=== PATIENT | male | born 1930 | race Caucasian/White ===

== ENCOUNTER → 2017-02-08 | Outpatient (CLI) | payer MEDICARE, OTHER ==
[~2017-02-08] MED LIST: ADVIL200 MG; NORVASC2.5 MG; PRAVACHOL40 MG; VITAMIN B-121000 MCG; VITAMIN D1000 UNIT
--- NOTE | ~2017-02-08 | ENPV ---
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 Calcified arterial conti in left lower extremity. Triphasic and biphasic waveforms in the left lower extremity. Procedure Type of Study: Extremities Arteries:Lower Extremities Arterial Duplex, Arterial Lower Extremity Left. Indications for Study:Reduced/Absent pulses. Patient Status:Routine. Study Location:Vascular Lab. Technical Quality:Adequate visualization. Velocities are measured in cm/s ; Diameters are measured in cm LE Duplex Measurements + ++-----+ +----+---+ + ! !!Right! !Left! ! ! + ++-----+ +----+---+ + !Location !!PSV !Wave Desc. ! !PSV!Wave Desc. ! + ++-----+ +----+---+ + !Femoral !! ! ! !127!Triphasic ! + ++-----+ +----+---+ + !PFA !! ! ! !117!Biphasic ! + ++-----+ +----+---+ + !Prox SFA !! ! ! !123!Biphasic ! + ++-----+ +----+---+ + !Mid SFA !! ! ! !108!Biphasic ! + ++-----+ +----+---+ + !Dist SFA !! ! ! !88 !Biphasic ! + ++-----+ +----+---+ + !Prox Popliteal !! ! ! !38 !Biphasic ! + ++-----+ +----+---+ + !Dist Popliteal !! ! ! !52 !Biphasic ! + ++-----+ +----+---+ + !Dist MANUFACTURING ENGINEERING PROFESSOR !! ! ! !52 !Biphasic ! + ++-----+ +----+---+ + !DP !! ! ! !25 !Biphasic ! + ++-----+ +----+---+ + Signature dtt: REBA HYMAN dtd: 02/08/17 1143 Physician Self Edit
== END | disposition disaster alternative care site (69) ==
LOC: GCAR 11:12
DX: I83.023 Varicose veins of left lower extremity with ulcer of ankle (principal); R09.89 Other specified symptoms and signs involving the circulatory and respiratory systems

== ENCOUNTER → 2017-02-16 | Outpatient (CLI) | payer MEDICARE, OTHER ==
--- NOTE | ~2017-02-16 | ENPV ---
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 Significant venous reflux is noted in the left greater saphenous vein at the mid calf. The left greater saphenous vein was not visualized from the mid to distal thigh. Procedure Type of Study: Veins:Lower Extremities Venous Insufficiency, Venous Duplex Pre Intervention NH, Lower Extremities DVT Study, Lower Extremity Left. Indications for Study:Venous ulcer and Unilateral pain and edema. Additional Indications:Left Lower extremity ulcer,edema, and pain. Patient Status:Routine. Study Location:Vascular Lab. Technical Quality:Adequate visualization. Contrast Medium Amount:9 ml. Velocities are measured in cm/s ; Diameters are measured in cm Left Doppler Measurements and Mapping + + +------+ +-------+ + !Location !Signal !Reflux!Reflux (sec)!AP Diam!Trans Diam! + + +------+ +-------+ + !Sapheno Femoral Junction!Phasic !No ! !0.45 !0.54 ! + + +------+ +-------+ + !GSV High Thigh !Absent !No ! !0.07 !0.09 ! + + +------+ +-------+ + !GSV Mid Thigh !Absent ! ! ! ! ! + + +------+ +-------+ + !GSV Low Thigh !Absent ! ! ! ! ! + + +------+ +-------+ + !GSV Knee !Absent !No ! !0.08 !0.08 ! + + +------+ +-------+ + !GSV High Calf !Diminished!No ! !0.12 !0.14 ! + + +------+ +-------+ + !GSV Mid Calf !Phasic !Yes !1.5 !0.17 !0.15 ! + + +------+ +-------+ + !GSV Low Calf !Diminished!No ! !0.26 !0.4 ! + + +------+ +-------+ + !SSV High Calf !Diminished!No ! !0.2 !0.25 ! + + +------+ +-------+ + !SSV Mid Calf !Diminished!No ! !0.21 !0.17 ! + + +------+ +-------+ + Velocities are measured in cm/s ; Diameters are measured in cm Right Lower Extremities DVT Study Measurements Right 2D and Doppler Measurements + + + + +------+------+ + !Location !Visualized!Compressibility!Thrombosis!Signal!Reflux!Reflux ! ! ! ! ! ! ! !(sec) ! + + + + +------+------+ + !Common !Yes !Yes !None ! ! ! ! !Femoral ! ! ! ! ! ! ! + + + + +------+------+ + Left Lower Extremities DVT Study Measurements Left 2D and Doppler Measurements + + + + +------+------+ + !Location !Visualized!Compressibility!Thrombosis!Signal!Reflux!Reflux ! ! ! ! ! ! ! !(sec) ! + + + + +------+------+ + !GSV Thigh !Yes !Yes !None !Phasic!No ! ! + + + + +------+------+ + !Common !Yes !Yes !None !Phasic!No ! ! !Femoral ! ! ! ! ! ! ! + + + + +------+------+ + !Prox !Yes !Yes !None !Phasic!No ! ! !Femoral ! ! ! ! ! ! ! + + + + +------+------+ + !Mid Femoral!Yes !Yes !None !Phasic!No ! ! + + + + +------+------+ + !Dist !Yes !Yes !None !Phasic!No ! ! !Femoral ! ! ! ! ! ! ! + + + + +------+------+ + !Popliteal !Yes !Yes !None !Phasic!No ! ! + + + + +------+------+ + !Gastroc !Yes !Yes !None ! ! ! ! + + + + +------+------+ + !PTV !Yes !Yes !None ! ! ! ! + + + + +------+------+ + !Peroneal !Yes !Yes !None ! ! ! ! + + + + +------+------+ + Signature dtt: REBA HYMAN dtd: 02/16/17 1001 Physician Self Eddl
== END | disposition disaster alternative care site (69) ==
LOC: GCAR 09:35
DX: I83.023 Varicose veins of left lower extremity with ulcer of ankle (principal); I82.891 Chronic embolism and thrombosis of other specified veins

== ENCOUNTER 2017-04-20 20:15 | Emergency (ER) | payer MEDICARE, OTHER ==
--- NOTE | ~2017-04-20 | ER ---
PATIENT'S NAME: LOYD CISNEROS [facility] AGE: 86 Y [address] ROOM: [place], [place] [address] LOCATION: [facility] ADMIT DATE: 04/20/2017 ER/Outpatient Report DISCHARGE DATE: 04/20/2017 FAMILY PHYSICIAN: Patel Mitchell MD ATTENDING PHYSICIAN: Mary Powell Admission date and time documented on the medical record. I saw the patient at 2030 hours. CHIEF COMPLAINT: Somnolence, tiredness, lethargy. HISTORY OF PRESENT ILLNESS: The patient is an 86-year-old male who took a new medication this afternoon around 1700 hours. He took Seroquel or quetiapine 25 mg. By 1730 hours, he was somnolent, sleepy. He fell asleep while he was eating his dinner tonight, "completely out of it" according to his . His brought him in for evaluation. She thought he might have been hallucinating at times along with his somnolence and sleepiness. He has not had any recent cold, coughs, flus, or any other medical problems. We were able to wake him up. He denies any chest pain, shortness of breath, abdominal pain, nausea, vomiting, diarrhea, or incontinence of stool or urine. No joint or muscle swelling, redness, or pain. No skin eruptions or rash. No lightheadedness, dizziness, syncope, or near syncope. No fall or trauma. No recent cold, coughs, flus, fever, chills, or sweats. No headache, eyes, ears, nose, throat, neck, or spine pain. The patient has no endocrine problems, neuro changes, or psych issues. HOME MEDICATIONS: See attached medication list. ALLERGIES: NONE. SOCIAL HISTORY: Nonsmoker, nondrinker. SIGNIFICANT PAST MEDICAL HISTORY: Hypertension, dyslipidemia, venous stasis ulcers on his lower extremities, atherosclerotic ischemic heart disease, coronary artery disease, degenerative osteoarthritis, venous insufficiency, remote tobacco abuse, gastroesophageal reflux, shingles, carotid occlusive disease, valvular heart disease with aortic stenosis, prostate cancer, colon cancer, iron deficiency anemia, and GI bleed. OPERATIONS: PATIENT'S NAME: LOYD CISNEROS [facility] AGE: 86 Y [address] ROOM: [place], [place] [address] LOCATION: [facility] ADMIT DATE: 04/20/2017 ER/Outpatient Report DISCHARGE DATE: 04/20/2017 FAMILY PHYSICIAN: Patel Mitchell MD ATTENDING PHYSICIAN: Mary Powell Left carotid endarterectomy, prostatectomy, colon resection, coronary artery bypass graft, bilateral cataract extraction, cervical spine surgery, carpal tunnel release, esophagogastroduodenoscopy, colonoscopy, aortic valve replacement, liver resection. REVIEW OF SYSTEMS: All systems reviewed by me are negative with the exception of those discussed in the history of present illness. PHYSICAL EXAMINATION: VITAL SIGNS: Temperature 97.6 orally, pulse 70, respirations 18, blood pressure 159/73, O2 saturation on room air is 96%. HEENT: Head, normocephalic. No abrasion, contusion, laceration, or swelling of the scalp or face. Eyes; extraocular muscles intact. PERRL. Sclerae clear and nonicteric. Ears, clear TMs bilaterally. Nose, clear. Throat, clear. Mucous membranes moist. NECK: No nuchal rigidity. No thyromegaly or cervical adenopathy. No tenderness. SPINE: Nontender. No deformity. LUNGS: Clear. Good air flow. No rales, rhonchi, or wheezes. HEART: Regular. Pulses are palpable. ABDOMEN: Soft, nondistended, nontender. Good bowel tones. No organomegaly or abnormal mass palpable. No CVA tenderness. PELVIS: Stable. EXTREMITIES: Moves all 4 extremities. No peripheral edema, cyanosis, or deformity. NEUROVASCULAR: Intact. The patient is excessively somnolent and falls asleep while I am talking to him. SKIN: Clear. LABORATORY DATA: White count was 6200, 54 segs, 30 lymphs, 10 monos, 5 eos, 1 baso. Hemoglobin is 13.1 with hematocrit 40.1, platelet count is 142,000. CMS was normal except for an elevated BUN of 30, elevated creatinine of 1.4, low GFR of 45. IMPRESSION: 1. Medication-related somnolence and lethargy, sleepiness. Side effect of the Seroquel that he was just started on. 2. Renal insufficiency with a BUN of 30, creatinine of 1.4, low GFR of 45. 3. Hypertension. 4. Dyslipidemia. 5. Venous insufficiency with venous stasis ulcers on his lower extremities. 6. Atherosclerotic ischemic heart disease and coronary artery disease. 7. Remote tobacco abuse. 8. Carotid occlusive disease. PATIENT'S NAME: LOYD CISNEROS [facility] AGE: 86 Y [address] ROOM: [place], [place] [address] LOCATION: ED ADMIT DATE: 04/20/2017 ER/Outpatient Report DISCHARGE DATE: 04/20/2017 FAMILY PHYSICIAN: Patel Mitchell MD ATTENDING PHYSICIAN: Mary Powell 9. Past history of colon cancer. 10. Past history of prostate cancer. 11. Gastroesophageal reflux. PLAN: The patient dismissed home. Observation. Activity as tolerated. Continue present home medications and care. Talk with Dr. Mitchell tomorrow about the Seroquel, his new medication and his symptoms of somnolence, tiredness, sleepiness. Follow up with personal physician as needed or as scheduled. Discussion ensued with the with regard to my findings and recommendations, she understands. MARY POWELL MD SDS/modl /[id number] d: 04/21/17 0324 t: 04/23/17 1829, OUTPATIENT REPORT
[2017-04-20 21:19] LABS: BASOPHIL % 0.6 %; EOSINOPHIL # 0.3 K/uL (0.0-0.5); HEMATOCRIT 40.1 % (33.0-50.0); HEMOGLOBIN 13.1 g/dL (11.0-16.0); IMMATURE GRANULOCYTE % 0.3 %; LYMPHOCYTE # 1.9 K/uL (0.8-4.0); MCHC 32.7 gm/dL (32.0-36.5); MONOCYTE # 0.6 K/uL (0.0-1.0); MONOCYTE % 10.1 %; MPV 11.5 fl (9.4-12.4); NEUTROPHIL # (ANC) 3.4 K/uL (1.4-9.0); NRBC % 0 /100WBC (0-0.00); PLATELET COUNT 142 K/uL (150-450); RBC 4.22 M/uL (3.50-5.50); RDW-CV 13.7 % (11.9-14.6); WBC 6.2 K/uL (4.0-11.0)
[2017-04-20 21:37] LABS: ALBUMIN 2.7 gm/dL (3.5-5.0); CALCIUM 8.5 mg/dL (8.5-10.5); CREATININE 1.4 mg/dL (0.6-1.3); TOTAL BILIRUBIN 0.3 mg/dL (0.0-1.5); TOTAL PROTEIN 6.7 g/dL (6.0-8.4)
[2017-04-20 21:38] LABS: ANION GAP 11.7 (10.0-19.0); POTASSIUM 4.7 mMol/L (3.7-5.1)
== END 2017-04-20 22:32 | disposition disaster alternative care site (69) ==
LOC: GMED 20:15
PROVIDERS: Emergency Medicine
DX: R40.0 Somnolence (principal); R53.83 Other fatigue; T43.595A Adverse effect of other antipsychotics and neuroleptics, initial encounter; G47.00 Insomnia, unspecified; I10 Essential (primary) hypertension; E78.5 Hyperlipidemia, unspecified; I87.2 Venous insufficiency (chronic) (peripheral); I83.019 Varicose veins of right lower extremity with ulcer of unspecified site; I83.029 Varicose veins of left lower extremity with ulcer of unspecified site; I25.10 Atherosclerotic heart disease of native coronary artery without angina pectoris; I65.29 Occlusion and stenosis of unspecified carotid artery; N28.89 Other specified disorders of kidney and ureter; M19.90 Unspecified osteoarthritis, unspecified site; K21.9 Gastro-esophageal reflux disease without esophagitis; D50.9 Iron deficiency anemia, unspecified; Z85.46 Personal history of malignant neoplasm of prostate; Z85.038 Personal history of other malignant neoplasm of large intestine; Z98.890 Other specified postprocedural states; Z79.899 Other long term (current) drug therapy